=== PATIENT | female | born 1950 | race Caucasian/White ===

== ENCOUNTER 2016-09-18 12:15 | Inpatient (IN) | payer OTHER ==
[~2016-09-18] VITALS: Ht 170.2 cm; Wt 49.9 kg
[2016-09-18 12:20] VITALS: BP 101/75; PULSE 88; RESP 20; TEMP 98.1; O2SAT 100
--- NOTE | 2016-09-18 12:25 | NUR ---
Pt placed to ER waiting room in stable condition. Denies c/o C/P or SOB. Ambulates with steady gait.
--- NOTE | 2016-09-18 12:35 | NUR ---
placed in bed 8 12 lead EKG done by Lety and labs drawn
--- NOTE | 2016-09-18 12:40 | NUR ---
pt. to ER AAOx4 c/o weakness at this time, states that she received a call from her PCP stating that pt.'s Potassium was found to be low, sent her for furthur testing and treatment, pt. states she feels fine as she is resting however does feel mild weakness on walking or as she performs activity, denies chest pain denies SOB
[2016-09-18 12:57] LABS: BASOPHILS # (AUTO) 0.1 K/uL (0.0-0.2); BASOPHILS % (AUTO) 0.7 % (0.0-2.0); EOSINOPHILS # (AUTO) 0.2 K/uL (0.0-0.4); EOSINOPHILS % (AUTO) 2.5 % (0.0-4.0); HEMATOCRIT 42.9 % (36-48); HEMOGLOBIN 14.2 g/dL (12.0-16.0); LYMPHOCYTES # (AUTO) 1.4 K/uL (1.0-5.5); LYMPHOCYTES % (AUTO) 17.3 % (20.5-51.5); MEAN CORPUSCULAR HEMOGLOBIN 30 pg (27-31); MEAN CORPUSCULAR HGB CONC 33 % (32-36); MEAN CORPUSCULAR VOLUME 91 fL (79.0-98.0); MONOCYTES # (AUTO) 0.5 K/uL (0.0-1.0); MONOCYTES % (AUTO) 6.1 % (1.7-9.3); NEUTROPHILS # (AUTO) 6.1 K/uL (1.8-7.7); NEUTROPHILS % (AUTO) 73.4 % (40.0-70.0); PLATELET COUNT (AUTO) 409 K/uL (130-430); RED BLOOD CELL COUNT(AUTO) 4.71 MIL/uL (4.2-6.2); RED CELL DISTRIBUTION WIDTH 13.1 % (9.0-15.0); WHITE BLOOD COUNT (AUTO) 8.3 K/uL (4.8-10.8)
--- NOTE | 2016-09-18 13:00 | NUR ---
Dr. Caballero at bedside examining the pt.
[2016-09-18 13:02] LABS: CALCIUM 9.6 mg/dL (8.4-11.0); CREATININE 1.65 mg/dL (0.55-1.30)
--- NOTE | 2016-09-18 13:10 | NUR ---
# 20 gauge angiocath placed to rac . Use of asceptic technique. Opsite placed over site. Blood return noted. Flushed with 10 cc of normal saline. No evidence of infiltration noted. Patient tolerated well.
[2016-09-18] MEDS ORDERED: POTASSIUM CHLORIDE 20 MEQ TAB.PRT.SR PO ONE ×3 (13:15→23:15)
[2016-09-18 13:16] LABS: ALBUMIN 4.3 g/dL (3.4-4.8); THYROID STIMULATING HORMONE 0.57 uIu/mL (0.34-4.82); TOTAL BILIRUBIN 0.4 mg/dL (0.0-1.0); TOTAL PROTEIN, SERUM 8.3 g/dL (6.4-8.3)
[2016-09-18 13:18] LABS: POTASSIUM 1.8 mmol/L (3.5-5.1)
[2016-09-18] MEDS ORDERED: KCL 20 mEq in D5/0.45NS 1000mL 1,000 ML IV ONE ×2 (13:30→23:00)
--- NOTE | 2016-09-18 13:50 | NUR ---
X Ray at bedside
[2016-09-18] MEDS ORDERED: NEU400 PO (14:00)
[2016-09-18] MEDS ORDERED: CILO50TA PO (14:00)
[2016-09-18] MEDS ORDERED: VENL75CA PO (14:00)
[2016-09-18] MEDS ORDERED: DONE10TA37 PO (14:00)
[2016-09-18] MEDS ORDERED: DONE5TAB26 PO (14:00)
[2016-09-18] MEDS ORDERED: OMEP40CA33 PO (14:00)
[2016-09-18] MEDS: COMMUNICATION ORDER XX ONE (14:00)
--- NOTE | 2016-09-18 14:00 | NUR ---
medication reconciliation completed as stated by pt.
--- NOTE | 2016-09-18 14:00 | NUR ---
Patient will be admitted to care of Dr. Jiang. Admitted to TELE unit. Will go to room 131A. Summary report printed. Report will be given at bedside by Lety.
--- NOTE | 2016-09-18 14:08 | NUR ---
ADMISSION NOTE Received patient from ER via tina, received report from DEBORAH REYNOLDS. Patient admitted with diagnosis of HYPOKALEMIA. Patient oriented to hospital routine, call light, toileting and safety-patient verbalized understanding.
--- NOTE | 2016-09-18 14:10 | NUR ---
Patient will be admitted to care of Monse REYNOLDS. Admitted to MST unit. Will go to room 113A. Belongings list completed. Summary report printed. Report will be given at bedside.
[2016-09-18 14:28] VITALS: BP 108/68; PULSE 71; RESP 18; TEMP 98.2; O2SAT 100
--- NOTE | 2016-09-18 14:40 | NUR ---
PAGED DR SUN LEFT MESSAGE ON VOICE MAIL [phone]
--- NOTE | 2016-09-18 14:58 | NUR ---
Intravenous fluid up now per advance practice nurse. Call from MD per her notification she received regular diet order. One more potassium due.
--- NOTE | 2016-09-18 15:04 | NUR ---
PSYCH CONSULT CONSULT TO DR DESAI'S OFFICE WAS CALLED, HIREN ABARCA, SHE SAID DR CARSON IS ROOFER HELPER RE DEPRESSION
--- NOTE | 2016-09-18 17:44 | NUR ---
ROUNDS TO PATIENT. GIVEN POTASSIUM ORDERED FOR FURTHER REPLETION.
[2016-09-18 18:43] VITALS: BP 98/67; PULSE 77; RESP 16; TEMP 97.7; O2SAT 97
--- NOTE | 2016-09-18 19:30 | NUR ---
Patient rounds and handoff report. Refuses psych consult. Says she only takes aricept at hs 10mg dose.
[2016-09-18 19:32] VITALS: BP 96/56; PULSE 73; RESP 18; TEMP 99.1; O2SAT 96
--- NOTE | 2016-09-18 19:32 | NUR ---
INITIAL NOTE Patient resting on the be. No acute distress. No acute distress. Respiration even and unlabored. Denied of pain at this time. Skin warm and dry to touch. SL intact to RAC, no redness, no swelling, no drainage. On KCl 20Meq in D5 1/2NS at 75ml/hr, infusing well. Discussed the safety issue, use call light when need help, and plan of care, verbally understanding. Safety measure maintained. Call light within reached. Bed in low position, side rails up, bed alarm on. Will continue to monitor.
--- NOTE | 2016-09-18 20:10 | NUR ---
AMBULATED PATIENT TO BATHROOM Ambulated patient to the bathroom, no acute distress. Safety measure maintained. Call light within reached. Continue to monitor.
[2016-09-18] MEDS: HEPARIN SODIUM,PORCINE 5000 UNITS/ML VIAL SUBCUT SCH (21:32)
--- NOTE | 2016-09-18 22:30 | NUR ---
NOTE Patient asked Neurontin 400mg x4 caps and stated that she used to take it at night otherwise will have pain and cannot sleep. Reviewed the home meds with patient and informed patient will have psych consult. Patient refused psych consult and stated "I don't need it." Will informed MD.
--- NOTE | 2016-09-18 22:41 | NUR ---
SHANE COTA Informed Dr. Jiang patient asked Neurontin 400mg cap x 4 caps and in the medication reconciliation home meds shown only 400mg at bedtime. Dr. Jiang ordered [place] 10/325mg 1tab Po PRN Q6hrs. order read back and okay to MD. MD stated "I will come to see the patient and do the med reconciliation." Also informed MD that the patient refused to have psych consult.
--- NOTE | 2016-09-18 22:41 | NUR ---
ADDITIONAL NOTE Also informed Dr. Jiang there is psych consult order but no doctor's name and patient refused psych consult. MD stated will see the patient tomorrow morning and talk to patient. Told MD if patient agree psych consult tomorrow, please enter the doctor's name.
[2016-09-18 22:42] LABS: CALCIUM 8.4 mg/dL (8.4-11.0); CREATININE 1.59 mg/dL (0.55-1.30)
[2016-09-18 22:45] LABS: POTASSIUM 2.1 mmol/L (3.5-5.1)
[2016-09-18] MEDS ORDERED: HYDROcodone/ACETAMIN 10-325 MG TAB PO PRN (22:45)
[2016-09-18] MEDS ORDERED: POTASSIUM CHLORIDE 40 MEQ in NS 250 ML IV ONE (23:15)
--- NOTE | 2016-09-18 23:40 | NUR ---
NORCO GIVEN Patient c/o both legs pain 6/10, [place] 10/325mg given as ordered. No acute distress. Ambulated patient to bathroom. Safety measure maintained. Call light within reached. Will continue to monitor.
[2016-09-18] MEDS ORDERED: KCL 40 mEq in 100 mL (PREMIX) 100 ML IV ONE (23:48)
[2016-09-19] VITALS (7 sets, daily range): BP systolic 91–135; BP diastolic 53–76; PULSE 67–99; RESP 16–22; TEMP 96–98.8; O2SAT 9–100
--- NOTE | 2016-09-19 01:20 | NUR ---
ROUND Patient sleeping at this time. No acute distress. Safety measure maintained. Call light within reached. Bed alarm on, side rails up, bed in low position. Will continue to monitor.
--- NOTE | 2016-09-19 03:15 | NUR ---
ROUND Patient sleeping at this time. No acute distress. Safety measure maintained. Call light within reached. Bed alarm on, side rails up, bed in low position. Continue to monitor.
--- NOTE | 2016-09-19 05:15 | NUR ---
AMBULATED PATIENT TO BATHROOM Ambulated patient to the bathroom, no acute distress. Safety measure maintained. Call light within reached. Continue to monitor.
--- NOTE | 2016-09-19 06:44 | NUR ---
CLOSING NOTE Patient resting on the bed. No acute distress. Respiration even and unlabored. Denied of pain at this time. Skin warm and dry to touch. IV intact to RAC, no redness, no swelling, no drainage. On KCl 20Meq in D5 1/2NS at 75ml/hr, infusing well. All needs met. Hourly rounding during shift. Safety measure maintained. Call light within reached. Bed in low position, side rails up, bed alarm on. Will endorse to morning shift nurse
[2016-09-19 06:55] LABS: CALCIUM 8.6 mg/dL (8.4-11.0); CREATININE 1.32 mg/dL (0.55-1.30)
[2016-09-19 07:05] LABS: POTASSIUM 2.8 mmol/L (3.5-5.1)
[2016-09-19 07:06] LABS: BASOPHILS % (AUTO) 0.8 % (0.0-2.0); EOSINOPHILS # (AUTO) 0.2 K/uL (0.0-0.4); EOSINOPHILS % (AUTO) 2.9 % (0.0-4.0); HEMATOCRIT 35.6 % (36-48); HEMOGLOBIN 12.2 g/dL (12.0-16.0); LYMPHOCYTES # (AUTO) 1.9 K/uL (1.0-5.5); LYMPHOCYTES % (AUTO) 31.7 % (20.5-51.5); MEAN CORPUSCULAR HEMOGLOBIN 32 pg (27-31); MEAN CORPUSCULAR HGB CONC 34 % (32-36); MEAN CORPUSCULAR VOLUME 92 fL (79.0-98.0); MONOCYTES # (AUTO) 0.3 K/uL (0.0-1.0); MONOCYTES % (AUTO) 5.7 % (1.7-9.3); NEUTROPHILS # (AUTO) 3.7 K/uL (1.8-7.7); NEUTROPHILS % (AUTO) 58.9 % (40.0-70.0); PLATELET COUNT (AUTO) 286 K/uL (130-430); RED BLOOD CELL COUNT(AUTO) 3.86 MIL/uL (4.2-6.2); WHITE BLOOD COUNT (AUTO) 6.1 K/uL (4.8-10.8)
--- NOTE | 2016-09-19 07:12 | NUR ---
CALLED SHANE COTA Reported to Dr. Jiang for critical lab result, potassium=2.8. The morning dose of KCl 40mEq not given yet. stated "Just give the morning dose KCl." No more new order at this time.
[2016-09-19] MEDS ORDERED: POTASSIUM CHLORIDE 20 MEQ TAB.PRT.SR PO ONE ×3 (09:00→17:00)
[2016-09-19] MEDS: HEPARIN SODIUM,PORCINE 5000 UNITS/ML VIAL SUBCUT SCH ×2 (09:24→21:53)
--- NOTE | 2016-09-19 09:40 | NUR ---
Handoff rounds and med pass complete. Given 40meq of K as requested for noc nurse.
[2016-09-19] MEDS ORDERED: HYDROcodone/ACETAMIN 10-325 MG TAB PO PRN (11:00)
[2016-09-19] MEDS ORDERED: KCL 20 mEq in NS 1000 mL 1,000 ML IV SCH (11:00)
[2016-09-19] MEDS ORDERED: MORPHINE 2 MG/ML INJ. SYRINGE IVP PRN (11:00)
[2016-09-19] MEDS ORDERED: ACETAMINOPHEN 325 MG TABLET PO PRN (11:00)
--- NOTE | 2016-09-19 11:15 | NUR ---
Patient request for more 7up and ice. Call to dietary. Needs met during follow up round.
[2016-09-19 12:55] LABS: CALCIUM 8.2 mg/dL (8.4-11.0); CREATININE 1.13 mg/dL (0.55-1.30)
[2016-09-19 12:58] LABS: POTASSIUM 2.9 mmol/L (3.5-5.1)
--- NOTE | 2016-09-19 14:11 | NUR ---
NEPHROLOGY CONSULT Spoke with Chloé regarding request for consultation with Dr. Cole ([phone]) for reason: hypokalemia. Dr. Swain is currently polymerization oven tender.
--- NOTE | 2016-09-19 15:47 | NUR ---
ROUNDS TO CHECK IF PATIENT IS ABLE TO PROVIDE SAMPLE OF URINE. PATIENT UNABLE AT THIS TIME. VERIFIED IV FLUID RUNNING.
[2016-09-19 15:59] LABS: CALCIUM 7.9 mg/dL (8.4-11.0); CREATININE 1.13 mg/dL (0.55-1.30); POTASSIUM 3.5 mmol/L (3.5-5.1)
--- NOTE | 2016-09-19 19:20 | NUR ---
INITIAL NOTE Patient resting on the bed. No acute distress. Respiration even and unlabored. Denied of pain at this time. AAO x 4. Skin warm and dry to touch. IV intact to RAC, no redness, no swelling. Discussed the safety issue, use call light when need help, and plan of care, verbally understanding. Safety measure maintained. Call light within reached. Bed in low position, side rails up. Refused bed alarm and stated "Bed alarm to make me nervous". Will continue to monitor.
--- NOTE | 2016-09-19 19:29 | NUR ---
HANDOFF REPORT WITH IMPROVED POTASSIUM AND SALINE LOCK AT THIS TIME TOLERATING PO WELL. NEEDS MET AT THIS TIME. PENDING URINE SODIUM AND CREATININE.
[2016-09-19] MEDS ORDERED: Effexor XR 37.5 MG PO SCH (21:00)
--- NOTE | 2016-09-19 21:00 | NUR ---
ROUND Patient resting on the bed and watching TV. No acute distress. Safety measure maintained. Call light within reached. Will continue to monitor.
[2016-09-19] MEDS: CILOSTAZOL 50 MG TABLET (PLETAL) PO SCH (21:50)
[2016-09-19] MEDS: DOCUSATE SODIUM 100 MG CAPSULE PO SCH (21:50)
[2016-09-19] MEDS: GABAPENTIN 400 MG CAPSULE PO SCH (21:50)
--- NOTE | 2016-09-19 21:55 | NUR ---
EFFEXOR ER NOT AVAILABLE Effexor ER not available house fellow informed. Effexor 37.5mg table is available, ordered 150mg. However, per patient she used to take extend release 150mg a capsule not the tablet. However, Effexor ER in the Pyxis is 75mg/capsule. Will informed .
[2016-09-19] MEDS ORDERED: Effexor 37.5 MG TAB ONE (22:20)
--- NOTE | 2016-09-19 22:30 | NUR ---
CALLED SHANE WAGNER Informed Dr. Zapata regarding the order of Effexor ER, the available is 75mg/cap instead of 37.5mg/cap, MD with [id number]/cap, give two [id number] PO BID. Also verify the rate of IVF with MD, reported to MD patient the last potassium=3.5 and the soiodg=234, the IVF order is KCl 20mEq in NS at 90ml/hr, MD with order decrease to 40ml/hr. Order read back and okay to .
[2016-09-19] MEDS ORDERED: Effexor XR 37.5 MG PO ONE (23:15)
[2016-09-19] MEDS: KCL 20 mEq in NS 1000 mL 1,000 ML IV SCH (23:18)
--- NOTE | 2016-09-20 00:20 | NUR ---
ROUND Patient resting on the bed with eyes closed. No acute distress. Safety measure maintained. Bed in low position, side rails up. Call light within reached. Continue to monitor.
[2016-09-20 01:21] VITALS: BP 93/58; PULSE 77; RESP 20; TEMP 97.8; O2SAT 96
[2016-09-20 01:34] LABS: POTASSIUM,URINE RANDOM 14 mmol/L (12-75); URINE SODIUM, RANDOM 12 mmol/L (40-220)
[2016-09-20 01:53] LABS: BILIRUBIN,URINE NEGATIVE (NEGATIVE); BLOOD, URINE NEGATIVE (NEGATIVE); CLARITY/URINE CLEAR (CLEAR); COLOR,URINE YELLOW (YELLOW); GLUCOSE,URINE NEGATIVE (NEGATIVE); KETONES,URINE NEGATIVE (NEGATIVE); LEUKOCYTE ESTERASE ,URINE NEGATIVE (NEGATIVE); NITRITE, URINE NEGATIVE (NEGATIVE); PROTEIN URINE TRACE (NEGATIVE); UROBILINOGEN,URINE 0.2 (0.2-1.0)
[2016-09-20 02:10] LABS: BACTERIA,URINE FEW /HPF (None Seen); HYALINE CASTS, URINE 0-10 /LPF (None Seen); MUCUS,URINE None Seen /LPF (None Seen); RBC,URINE NONE SEEN /HPF (0-3); WBC,URINE 0-3 /HPF (0-3)
--- NOTE | 2016-09-20 04:14 | NUR ---
ROUND Patient sleeping comfortable. No acute distress. Respiration even and unlabored. Safety measure maintained. Bed in low position, side rails up. Call light within reached. Continue to monitor.
[2016-09-20 04:49] VITALS: BP 92/63; PULSE 66; RESP 17; TEMP 96.8; O2SAT 98
--- NOTE | 2016-09-20 05:25 | NUR ---
ROUND Patient resting on the bed with eyes closed. No acute distress. Respiration even and unlabored. Safety measure maintained. Bed in low position, side rails up. Call light within reached. Continue to monitor.
--- NOTE | 2016-09-20 06:51 | NUR ---
CLOSING NOTE Patient resting on the bed with eyes closed. No acute distress. Respiration even and unlabored. Skin warm and dry to touch. IV intact to RAC, no redness, no swelling, no drainage. Continue on KCl 20Meq in NS at 40ml/hr, infusing well. All needs met. Hourly rounding during shift. Safety measure maintained. Call light within reached. Bed in low position, side rails up, bed alarm on. Will endorse to morning shift nurse
[2016-09-20 07:28] LABS: BASOPHILS % (AUTO) 0.9 % (0.0-2.0); EOSINOPHILS # (AUTO) 0.2 K/uL (0.0-0.4); EOSINOPHILS % (AUTO) 3.7 % (0.0-4.0); HEMOGLOBIN 10.5 g/dL (12.0-16.0); LYMPHOCYTES # (AUTO) 1.5 K/uL (1.0-5.5); LYMPHOCYTES % (AUTO) 34.4 % (20.5-51.5); MEAN CORPUSCULAR HEMOGLOBIN 31 pg (27-31); MEAN CORPUSCULAR HGB CONC 33 % (32-36); MEAN CORPUSCULAR VOLUME 94 fL (79.0-98.0); MONOCYTES # (AUTO) 0.3 K/uL (0.0-1.0); MONOCYTES % (AUTO) 7.8 % (1.7-9.3); NEUTROPHILS # (AUTO) 2.4 K/uL (1.8-7.7); NEUTROPHILS % (AUTO) 53.2 % (40.0-70.0); PLATELET COUNT (AUTO) 215 K/uL (130-430); RED BLOOD CELL COUNT(AUTO) 3.39 MIL/uL (4.2-6.2); RED CELL DISTRIBUTION WIDTH 13.6 % (9.0-15.0); WHITE BLOOD COUNT (AUTO) 4.4 K/uL (4.8-10.8)
[2016-09-20 07:29] LABS: CALCIUM 8.1 mg/dL (8.4-11.0); POTASSIUM 3.8 mmol/L (3.5-5.1)
[2016-09-20 08:09] VITALS: BP 108/66; PULSE 82; RESP 16; TEMP 97.4; O2SAT 100
[2016-09-20] MEDS ORDERED: VENLAFAXINE HCL 75 MG TABLET PO SCH (09:00)
[2016-09-20] MEDS ORDERED: Effexor XR 37.5 MG PO SCH (09:00)
[2016-09-20] MEDS ORDERED: OMEPRAZOLE 20 MG CAPSULE.DR (PriLOSEC) PO SCH (09:00)
[2016-09-20] MEDS: FAMOTIDINE 20 MG TABLET PO SCH (09:38)
[2016-09-20] MEDS: HEPARIN SODIUM,PORCINE 5000 UNITS/ML VIAL SUBCUT SCH ×2 (09:38→21:45)
[2016-09-20] MEDS: MULTIVITAMINS TAB 1 TABLET PO SCH (09:38)
[2016-09-20] MEDS: DOCUSATE SODIUM 100 MG CAPSULE PO SCH ×2 (09:38→21:42)
[2016-09-20] MEDS: CILOSTAZOL 50 MG TABLET (PLETAL) PO SCH ×2 (09:55→21:42)
[2016-09-20] MEDS ORDERED: COMMUNICATION ORDER XX ONE (10:00)
--- NOTE | 2016-09-20 10:08 | NUR ---
PATIENT ROUNDS TO LABEL TUBING, PASS PLETAL, AND OBTAIN MEDICAL RECORD RELEASE CONSENT FOR [facility].
--- NOTE | 2016-09-20 10:57 | NUR ---
Verified fax hotel receptionist to [facility]. Awaiting image results.
[2016-09-20 11:45] VITALS: BP 93/50; PULSE 73; RESP 18; TEMP 98.3; O2SAT 97
--- NOTE | 2016-09-20 13:06 | NUR ---
Call to [facility] for follow up on bilateral carotid imaging. Refax of release of information.
--- NOTE | 2016-09-20 14:38 | NUR ---
Received and placed in chart for MD review a bilateral carotid ultrasound study from [facility], [facility] 09/09/16.
[2016-09-20 16:17] VITALS: Ht 170.2 cm; Wt 49.9 kg
[2016-09-20] MEDS ORDERED: POTASSIUM CHLORIDE 20 MEQ/PKT PACKET PO ONE (16:30)
[2016-09-20 16:45] VITALS: BP 118/68; PULSE 97; RESP 18; TEMP 98; O2SAT 100
--- NOTE | 2016-09-20 18:23 | NUR ---
Rounds to patient. Asking to discharge home. Says she feels better. 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 Remembers how bad the potassium powder mixed with liquid tastes. Used applejuice to mix with potassium.
--- NOTE | 2016-09-20 19:21 | NUR ---
OPENING NOTE Pt. and bedside report received from day shift nurse. Pt. is AAO x 4 and resting comfortably in bed. Plan of care discussed. Safety precautions discussed with pt. Educated pt. regarding bed alarm and safety protocol but pt. is refusing at this time and stated "I just don't want it on and I know I will call if I need to or don't feel well, it makes me more nervous having it on than anything and they didn't have it on last night and all day either." Educated pt. on how to use call light for needs. Will continue to monitor.
--- NOTE | 2016-09-20 19:47 | NUR ---
Handoff report with noc nurse at patient bedside. Mentioned clarified orders for dose of medication, effexor, an issue she says was fixed last night.
[2016-09-20 20:00] VITALS: BP 114/59; PULSE 87; RESP 17; TEMP 97.3; O2SAT 100
[2016-09-20] MEDS: KCL 20 mEq in NS 1000 mL 1,000 ML IV SCH (21:42)
--- NOTE | 2016-09-20 21:42 | NUR ---
DUE MEDS Late entry due to pt. care. Due meds administered as ordered. Pt. tolerated well. Educated pt. regarding medication and s/e. Pt. verbalized understanding with no concerns or c/o discomfort at this time. Call light to left hand. Pt. refusing bed alarm. Safety precautions in place. Encouraged pt. to use call light for needs. Will continue to monitor.
[2016-09-20] MEDS: GABAPENTIN 400 MG CAPSULE PO SCH (21:43)
--- NOTE | 2016-09-21 | NUR ---
RESTING Pt. resting quietly in bed. Respirations are even and unlabored with visible chest rise and fall. No s/s of acute distress. Safety precautions in place. Will continue to encourage regarding bed alarm. Will continue to monitor.
--- NOTE | 2016-09-21 02:30 | NUR ---
RESTING Late entry due to pt. care. Pt. is resting quietly in bed with no s/s of acute distress. Safety precautions in place. Will continue to monitor.
[2016-09-21 04:00] VITALS: BP 97/68; PULSE 68; RESP 12; TEMP 97.5; O2SAT 100
--- NOTE | 2016-09-21 05:27 | NUR ---
ROUNDS Pt. resting quietly in bed with no s/s of acute distress. Safety precautions in place. Pt. continuing to refuse bed alarm for safety but is educated and frequently encouraged. Call light to left hand. Will continue to monitor.
--- NOTE | 2016-09-21 06:55 | NUR ---
CLOSING NOTES All needs met. No significant changes. Safety precautions in place. Will endorse care to oncoming day shift nurse.
[2016-09-21 07:42] LABS: CALCIUM 8.1 mg/dL (8.4-11.0); CREATININE 0.9 mg/dL (0.55-1.30); POTASSIUM 4.7 mmol/L (3.5-5.1)
[2016-09-21 08:08] VITALS: BP 99/60; PULSE 71; RESP 16; TEMP 98; O2SAT 99
--- NOTE | 2016-09-21 08:13 | NUR ---
Rounds to patient, provided shower cap, comb and towel. Patient given extra cup of coffee. Vital signs stable.
[2016-09-21] MEDS: HEPARIN SODIUM,PORCINE 5000 UNITS/ML VIAL SUBCUT SCH (09:04)
[2016-09-21] MEDS: MULTIVITAMINS TAB 1 TABLET PO SCH (09:05)
[2016-09-21] MEDS: FAMOTIDINE 20 MG TABLET PO SCH (09:05)
[2016-09-21] MEDS: DOCUSATE SODIUM 100 MG CAPSULE PO SCH (09:05)
[2016-09-21 11:00] VITALS: BP 117/76; PULSE 78; RESP 18; TEMP 98.1; O2SAT 97
[2016-09-21 11:56] VITALS: BP 117/71; PULSE 78; RESP 18; TEMP 98.1; O2SAT 97
--- NOTE | 2016-09-21 12:55 | NUR ---
D/C Patient Patient given medication reconciliation form and D/C instructions. Exit Care provided. Patient verbalized understanding. MD discussed with patient the results and treatment provided. Ambulatory with steady gait for discharge to home. Patient in stable condition, ID band removed. IV catheter removed, intact and dressing applied, no active bleeding. Rx reconciliation given. Patient educated on pain management. All belongings sent with patient.
--- NOTE | 2016-09-23 11:50 | NUR ---
Discharge Follow Up Phone Call Associate Curator phoned patient, , and left a voicemail message on 09/22/16. SPEECH CORRECTION CONSULTANT phoned patient today. Patient stated she was doing well. She had no questions or concerns. She has not made her follow up appointment with Dr De La Cruz, but will call today. SPEECH CORRECTION CONSULTANT offered to make the appointment, but patient prefers to make her own appointment. She is aware that she needs lab work done within the week. No further calls needed.
== END 2016-09-21 12:55 | disposition home or self-care (01) | DRG 73 ==
LOC: SED 12:15 → STU 13:43 → SMU 14:22 → STU 14:26 → SMU 09-20 23:27
PROVIDERS: ADMIT Family Medicine; ATTEND Family Medicine
DX: G90.9 Disorder of the autonomic nervous system, unspecified (principal); N17.0 Acute kidney failure with tubular necrosis; E87.6 Hypokalemia; F32.9 Major depressive disorder, single episode, unspecified; K21.9 Gastro-esophageal reflux disease without esophagitis; I10 Essential (primary) hypertension; G62.9 Polyneuropathy, unspecified
CPT/HCPCS: 36415; 71010; 80048; 80053; 81000-TC; 83735-TC; 83880; 83930-TC; 83935-TC; 84302-TC; 84443-TC; 84999-TC; 85025; 93005; 99285; J1644; J3480; J7030; J7050

== ENCOUNTER 2017-03-01 08:19 | Outpatient (CLI) | payer OTHER ==
[~2017-03-01] VITALS: Ht 152.4 cm; Wt 47.2 kg
[~2017-03-01 08:19] MED LIST: CILO50TA PO; DONE10TA37 PO; NEU400 PO; VENL75CA PO
[2017-03-01] MEDS ORDERED: CALCITRIOL 0.25 MCG CAPSULE PO ONE (09:00)
== END 2017-03-01 17:14 | disposition home or self-care (01) ==
LOC: SMU 08:19 → SUS 08:19
PROVIDERS: ATTEND Internal Medicine
DX: N18.3 Chronic kidney disease, stage 3 (moderate) (principal); I73.9 Peripheral vascular disease, unspecified; E78.5 Hyperlipidemia, unspecified
CPT/HCPCS: 76770; 78709; A9562

== ENCOUNTER 2019-02-17 12:26 | Inpatient (IN) | payer OTHER, MEDICARE ==
[~2019-02-17] VITALS: Ht 170.2 cm; Wt 49.0 kg
[2019-02-17 12:26] VITALS: BP_SYST 112
--- NOTE | 2019-02-17 12:26 | NUR ---
Patient to ER bed 2 to gown for evaluation. Side rails up. Report given to GAIL Zhang.
--- NOTE | 2019-02-17 12:40 | NUR ---
ER Dr. Aly at bedside examining patient.
[2019-02-17] MEDS ORDERED: NACL 0.9% 1,000 ML IV ONE (12:46)
[2019-02-17] MEDS ORDERED: ONDANSETRON HCL 4 MG/2 ML VIAL IVP ONE (13:00)
[2019-02-17] MEDS ORDERED: MORPHINE 2 MG/ML INJ. SYRINGE IVP ONE (13:00)
[2019-02-17 13:22] LABS: BASOPHILS % (AUTO) 0.3 % (0.0-2.0); EOSINOPHILS % (AUTO) 0.2 % (0.0-4.0); HEMATOCRIT 38.7 % (36-48); LYMPHOCYTES # (AUTO) 0.9 K/uL (1.0-5.5); LYMPHOCYTES % (AUTO) 9.3 % (20.5-51.5); MEAN CORPUSCULAR HEMOGLOBIN 33 pg (27-31); MEAN CORPUSCULAR HGB CONC 34 % (32-36); MEAN CORPUSCULAR VOLUME 99 fL (79.0-98.0); MONOCYTES # (AUTO) 0.4 K/uL (0.0-1.0); MONOCYTES % (AUTO) 4.8 % (1.7-9.3); NEUTROPHILS # (AUTO) 7.9 K/uL (1.8-7.7); NEUTROPHILS % (AUTO) 85.4 % (40.0-70.0); PLATELET COUNT (AUTO) 272 K/uL (130-430); RED BLOOD CELL COUNT(AUTO) 3.91 MIL/uL (4.2-6.2); RED CELL DISTRIBUTION WIDTH 13.1 % (9.0-15.0); WHITE BLOOD COUNT (AUTO) 9.2 K/uL (4.8-10.8)
[2019-02-17 13:36] LABS: CALCIUM 8.6 mg/dL (8.4-11.0); CREATININE 1.85 mg/dL (0.55-1.30)
--- NOTE | 2019-02-17 13:40 | NUR ---
Note donell in EDM - 02/17/19 at 1343 by LACY received report from GAIL Arreola. patient in bed, O2Sat at 84-85%. Patient denies SOB and states is breathing fine and does not want oxygen. Patient states needed to lay on side and is fine. Patient states smells "pot" but does not use it. Patient agitated. Will continue to monitor.
--- NOTE | 2019-02-17 13:40 | NUR ---
Patient brought in by son for c/o right upper back pain that radiate to abdomen, 9/10 pain. Patient denies nausea, vomiting and diarrhea. Patient AAOX4. Patient had cataract surgery right eye x3 days ago and left cataract surgery 3 years ago. No s/s of acute distress noted. Will continue to monitor.
[2019-02-17 13:41] LABS: ALBUMIN 3.3 g/dL (3.4-4.8); TOTAL BILIRUBIN 0.4 mg/dL (0.0-1.0)
--- NOTE | 2019-02-17 15:32 | NUR ---
Patient transported to radiology via gurney, accompanied by echocardiography radiology technologist.
--- NOTE | 2019-02-17 16:00 | NUR ---
patient in bed, resting. no s/s of acute distress noted. son at bedside. will continue to monitor.
--- NOTE | 2019-02-17 16:30 | NUR ---
Patient in bed resting. no s/s of acute distress noted. will continue to monitor.
--- NOTE | 2019-02-17 18:20 | NUR ---
Patient will be admitted to care of Dr. Quintana. Admitted to medsurg unit. GAIL Sarmiento to assign room. Belongings list completed. Summary report printed. Report will be given at bedside.
[2019-02-17] MEDS ORDERED: CILO100T PO (18:49)
[2019-02-17] MEDS ORDERED: SPIR25TA6 PO (18:49)
--- NOTE | 2019-02-17 18:51 | NUR ---
Medication reconciliation completed with information provided by patient. Any prior medication reconciliation on file was reviewed and corrected.
--- NOTE | 2019-02-17 18:55 | NUR ---
Patient will be admitted to care of Dr. Bass. Admitted to med/surg unit. Will go to room 117B. Belongings list completed. Summary report printed. Report will be given at bedside.
--- NOTE | 2019-02-17 19:00 | NUR ---
Report called and given to Kimberlee Sarmiento RN. All questions answered.
--- NOTE | 2019-02-17 19:04 | NUR ---
ADMIT NOTE Received pt from ER to the floor with a diagnosis of INTRACTABLE ABDOMINAL PAIN AND POSSIBLE CHOLECYSTITIS. Admission process initiated. patient oriented to pain management, safety and call light-teach back done.
[2019-02-17] MEDS ORDERED: ONDANSETRON HCL 4 MG/2 ML VIAL IVP PRN (19:30)
[2019-02-17] MEDS ORDERED: HYDROcodone/ACETAMIN 5-325 MG TAB (NORCO/ VICODIN) PO PRN (19:30)
[2019-02-17] MEDS ORDERED: MORPHINE 2 MG/ML INJ. SYRINGE IVP PRN (19:30)
[2019-02-17] MEDS ORDERED: ACETAMINOPHEN 325 MG TABLET PO PRN (19:30)
--- NOTE | 2019-02-17 19:30 | NUR ---
OPENING NOTES Receive patient from admitting nurse. Patient is alert oriented x4. No signs of respiratory distress. Patient verbalized comfortable at this time. SL in the Left AC. Patency noted. Patient oriented to room and staffing. Call light with in reach. Bed in locked and lowest position. Patient educated on the use of call light. Patient verbalized understanding. Bed alarm on. Safety precaution in place.
[2019-02-17 20:00] VITALS: BP_SYST 118; BP_SYST 126; BP_SYST 149
[2019-02-17] MEDS ORDERED: cefTRIAXone 1 GM IVPB PREMIX 50 ML IV SCH (20:00)
--- NOTE | 2019-02-17 20:18 | NUR ---
SPOKE WITH DR. ANITA LUBIN stated it is ok to give PO Meds to patient. made aware that patient complaints about Morphine, it gives patient heartburn. ordered [place] 10/325 PO Q6H PRN, also to put consult for surgeon. Will carry out orders.
[2019-02-17 20:20] LABS: INR 1.1 (0.8-1.2); PROTHROMBIN TIME 10.7 SECS (9.5-12.5)
[2019-02-17 20:34] LABS: PHOSPHORUS 2.9 mg/dL (2.7-4.5)
[2019-02-17] MEDS ORDERED: cefTRIAXone 1 GM IVPB PREMIX 50 ML IV ONE ×2 (20:38→20:42)
[2019-02-17] MEDS: NACL 0.9% 1,000 ML IV SCH (20:40)
[2019-02-17] MEDS: HYDROcodone/ACETAMIN 10-325 MG TAB PO PRN (20:42)
--- NOTE | 2019-02-17 20:42 | NUR ---
PAIN Patient complaints of 8/10 abdominal pain. PRN medication Pain medication administered. Will continue to monitor and re assess.
[2019-02-17] MEDS: DOCUSATE SODIUM 100 MG CAPSULE PO SCH (20:44)
[2019-02-17] MEDS: SPIRONOLACTONE 25 MG TABLET (ALDACTONE) PO SCH (20:44)
[2019-02-17] MEDS: GABAPENTIN 400 MG CAPSULE PO SCH (20:44)
[2019-02-17] MEDS: VENLAFAXINE HCL 50 MG TABLET PO SCH (20:57)
--- NOTE | 2019-02-17 22:40 | NUR ---
RN ROUNDS Patient is asleep. No signs of discomfort noted at this time. No signs of acute respiratory distress, breathing even and unlabored. Safety precautions in place. Will continue to monitor.
--- NOTE | 2019-02-18 00:10 | NUR ---
VITALS/ASSIST TO BATHROOM/REQUEST NOT TO BE DISTURBED Vitals signs taken and recorded. Patient assisted to bathroom and back to bed by RN. Patient has steady gait, patient tolerated well. Patient verbalized not to be disturbed and would like to get some sleep. Patient made aware of Lab draw at 0500. Patient verbalized understanding. All needs met. Safety precaution in place. Will continue to monitor.
[2019-02-18 00:25] VITALS: BP_SYST 99
[2019-02-18 01:08] LABS: BILIRUBIN,URINE NEGATIVE (NEGATIVE); BLOOD, URINE 1+ (NEGATIVE); CLARITY/URINE CLEAR (CLEAR); COLOR,URINE YELLOW (YELLOW); GLUCOSE,URINE NEGATIVE (NEGATIVE); KETONES,URINE NEGATIVE (NEGATIVE); LEUKOCYTE ESTERASE ,URINE NEGATIVE (NEGATIVE); NITRITE, URINE NEGATIVE (NEGATIVE); PH,URINE 5.5 (5.0-8.0); PROTEIN URINE NEGATIVE (NEGATIVE); UROBILINOGEN,URINE 0.2 (0.2-1.0)
[2019-02-18 01:13] LABS: BACTERIA,URINE FEW /HPF (None Seen); WBC,URINE 0-3 /HPF (0-3)
[2019-02-18 01:30] LABS: THYROID STIMULATING HORMONE 0.58 uIu/mL (0.36-3.74)
[2019-02-18] MEDS: HYDROcodone/ACETAMIN 10-325 MG TAB PO PRN ×4 (04:36→21:16)
--- NOTE | 2019-02-18 04:36 | NUR ---
PAIN Patient verbalized 9/10 abdominal pain. PRN pain medication per MD order. Will continue to monitor.
--- NOTE | 2019-02-18 05:51 | NUR ---
CONSULTATION PAGED REASON FOR CONSULTATION: POSSIBLE CHOLECYSTITIS WAS CONSULT CALLED? YES PERSON WHO WAS NOTIFIED: MOLLY CONSULTING PHYSICIAN: DR. ELLISON LIQUEFACTION PLANT OPERATOR SPECIALTY: GENERAL VICE PRESIDENT [employer] PHONE NUMBER: [phone] ORDERING PHYSICIAN: DR. HOWARD
--- NOTE | 2019-02-18 06:37 | NUR ---
CLOSING NOTES Patient is asleep. NO signs of respiratory distress. No signs of discomfort at this time. IVF infusing well, IV site patent, no signs of infiltration or infection noted. All needs met throughout the shift. Fall and safety precaution in place. Will continue to monitor until patient care is endorse to oncoming day shift nurse.
[2019-02-18 08:00] VITALS: BP_SYST 109
--- NOTE | 2019-02-18 08:00 | NUR ---
RN OPENING NOTE patient is resting in bed. alert oriented x4, patient denies pain or discomfort. patient was assessed, vital signs are stable. patient is NPO except for meds. IVF is running as prescribed, will continue to monitor and will pass the med , bed at low position and call light within reach
[2019-02-18 08:13] LABS: BASOPHILS % (AUTO) 0.2 % (0.0-2.0); EOSINOPHILS % (AUTO) 0.2 % (0.0-4.0); HEMATOCRIT 34.2 % (36-48); HEMOGLOBIN 11.6 g/dL (12.0-16.0); LYMPHOCYTES # (AUTO) 0.7 K/uL (1.0-5.5); MEAN CORPUSCULAR HEMOGLOBIN 34 pg (27-31); MEAN CORPUSCULAR HGB CONC 34 % (32-36); MEAN CORPUSCULAR VOLUME 100 fL (79.0-98.0); MONOCYTES # (AUTO) 0.6 K/uL (0.0-1.0); MONOCYTES % (AUTO) 7.7 % (1.7-9.3); NEUTROPHILS % (AUTO) 83.9 % (40.0-70.0); PLATELET COUNT (AUTO) 219 K/uL (130-430); RED BLOOD CELL COUNT(AUTO) 3.42 MIL/uL (4.2-6.2); RED CELL DISTRIBUTION WIDTH 12.8 % (9.0-15.0); WHITE BLOOD COUNT (AUTO) 8.4 K/uL (4.8-10.8)
[2019-02-18 08:27] LABS: CREATININE 1.94 mg/dL (0.55-1.30); POTASSIUM 4.8 mmol/L (3.5-5.1)
[2019-02-18] MEDS: SPIRONOLACTONE 25 MG TABLET (ALDACTONE) PO SCH ×2 (08:44→20:56)
[2019-02-18] MEDS: DOCUSATE SODIUM 100 MG CAPSULE PO SCH ×2 (08:44→20:55)
[2019-02-18] MEDS: cefTRIAXone 1 GM IVPB PREMIX 50 ML IV SCH (08:45)
[2019-02-18] MEDS: NACL 0.9% 1,000 ML IV SCH ×2 (08:46→21:18)
[2019-02-18] MEDS: VENLAFAXINE HCL 50 MG TABLET PO SCH ×2 (09:00→21:00)
--- NOTE | 2019-02-18 09:02 | NUR ---
CONSULTATION PAGED REASON FOR CONSULTATION:DILATED CBD WAS CONSULT CALLED?Y PERSON WHO WAS NOTIFIED:KUSHAL CONSULTING PHYSICIAN:BRADLEY LOPEZ EXPERIMENTAL PLASTICS FABRICATOR SPECIALTY:GI EXPERIMENTAL PLASTICS FABRICATOR PHONE NUMBER:[phone] ORDERING PHYSICIAN:
[2019-02-18 09:17] LABS: CALCIUM 7.7 mg/dL (8.4-11.0)
--- NOTE | 2019-02-18 10:00 | NUR ---
RN NOTE PATIENT WAS GIVEN HER MEDICATION, EDUCATED ABOUT THE SIDE EFFECTS OF SOME OF THEM, SOME HOME MED IS NOT YET HERE WELL EFFEXOR, PHARMACY WAS CALLED. PATIENT WAS INFORMED TO BRING HER CLISTAZOLE FROM HOME AND EFFEXOR IS NOT AVAILABLE IN THE HOSPITAL. PHARMACY WAS INFORMED. WILL CONTINUE TO MONITOR.
--- NOTE | 2019-02-18 12:00 | NUR ---
RN NOTE PATIENT IS RESTING IN BED, PATIENT WAS PUT ON CLEAR LIQUID DIET. PATIENT'S SON BY THE BED SIDE, WAS EDUCATED ABOUT HER DISEASE PROCESS. GI CONSULT WILL BE COMING TOMORROW FOR MRCP, WILL CONTINUE TO MONITOR.
[2019-02-18 12:22] VITALS: BP_SYST 108
--- NOTE | 2019-02-18 14:00 | NUR ---
RN NOTE PATIENT IS RESTING IN BED, NO ISSUE
--- NOTE | 2019-02-18 16:00 | NUR ---
RN NOTE PATIENT WAS ASSISTED TO THE BATHROOM, AND RETURNING BACK TO BED, TOLERATED IT VERY WELL
[2019-02-18 16:14] VITALS: BP_SYST 128
--- NOTE | 2019-02-18 18:00 | NUR ---
RN CLOSING NOTE PATIENT WAS GIVEN HER MEDICATIONS, WELL HER PAIN MED. PATIENT WAS SERVED HER DINNER, WILL ENDORSE TO NEXT SHIFT.
--- NOTE | 2019-02-18 19:30 | NUR ---
OPENING NOTES Receive report from AM nurse. Patient is awake, oriented x4. No signs of respiratory distress. Denies discomfort at this time. IVF infusing well, patency noted. Call light within reach. Bed locked and lowest position. Call light within reach. Encourage the use of call light, patient teach back and demonstrated the use of call light. Patient refused to put the bed alarm. Patient educated the purpose of bed alarm. Patient verbalized understanding but still refused. Will continue to monitor.
[2019-02-18 20:00] VITALS: BP_SYST 149
[2019-02-18] MEDS: GABAPENTIN 400 MG CAPSULE PO SCH (20:56)
[2019-02-18] MEDS: CILOSTAZOL 50 MG PO SCH (21:00)
--- NOTE | 2019-02-18 21:00 | NUR ---
REFUSED SCDS/PAIN Patient complaining of 10/10 lower back pain at this time. Patient informed that [place] 10/325 will available in 15 minutes per PRN order, patient verbalized understanding and is willing to wait. Patient refused SCDs at this time, patient educated on its benefits and purpose, but patient still refused. Will continue to encourage throughout the shift. Breathing even and unlabored. IVF infusing well. Call light with patient. Will continue to monitor.
[2019-02-18 23:46] VITALS: BP_SYST 126
--- NOTE | 2019-02-19 02:00 | NUR ---
RN ROUNDS Patient is asleep, no signs of respiratory distress. Breathing even and unlabored. No signs of discomfort at this time. IVF infusing well. Safety precaution in place. Will continue to monitor.
--- NOTE | 2019-02-19 04:00 | NUR ---
RN ROUNDS Patient is asleep at this time. No signs of respiratory distress. No signs of discomfort noted. IVF infusing well. Safety precaution in place. Will continue to monitor.
[2019-02-19] MEDS: HYDROcodone/ACETAMIN 10-325 MG TAB PO PRN ×2 (06:36→12:36)
--- NOTE | 2019-02-19 06:45 | NUR ---
CLOSING NOTES. Patient is awake, oriented. No signs of respiratory distress. Denies discomfort at this time. IVF infusing well, patency noted. All needs met throughout the shift. Fall and safety precaution maintained throughout the shift. Will continue to monitor until patient care is endorse to oncoming AM nurse.
--- NOTE | 2019-02-19 06:51 | NUR ---
Nutrition Update Rubens Scale 18 noted. Pt admitted for Intractable Abdominal Pain, Possible Cholecystitis Diet: NPO BMI: 16.9 kg/m2 RD to follow per nutrition care standards.
[2019-02-19 07:45] LABS: BASOPHILS % (AUTO) 0.4 % (0.0-2.0); EOSINOPHILS % (AUTO) 0.1 % (0.0-4.0); HEMATOCRIT 35.8 % (36-48); LYMPHOCYTES # (AUTO) 0.6 K/uL (1.0-5.5); LYMPHOCYTES % (AUTO) 5.9 % (20.5-51.5); MEAN CORPUSCULAR HEMOGLOBIN 34 pg (27-31); MEAN CORPUSCULAR HGB CONC 34 % (32-36); MEAN CORPUSCULAR VOLUME 100 fL (79.0-98.0); MONOCYTES # (AUTO) 0.7 K/uL (0.0-1.0); MONOCYTES % (AUTO) 7.2 % (1.7-9.3); NEUTROPHILS # (AUTO) 8.8 K/uL (1.8-7.7); NEUTROPHILS % (AUTO) 86.4 % (40.0-70.0); PLATELET COUNT (AUTO) 224 K/uL (130-430); RED BLOOD CELL COUNT(AUTO) 3.59 MIL/uL (4.2-6.2); WHITE BLOOD COUNT (AUTO) 10.1 K/uL (4.8-10.8)
[2019-02-19 08:02] LABS: ALBUMIN 2.3 g/dL (3.4-4.8); CREATININE 1.88 mg/dL (0.55-1.30); PHOSPHORUS 2.5 mg/dL (2.7-4.5); POTASSIUM 5.1 mmol/L (3.5-5.1); TOTAL BILIRUBIN 0.4 mg/dL (0.0-1.0)
[2019-02-19 08:20] LABS: CALCIUM 8.1 mg/dL (8.4-11.0)
[2019-02-19 08:50] VITALS: BP_SYST 83
[2019-02-19] MEDS: CILOSTAZOL 50 MG PO SCH ×2 (09:00→21:00)
[2019-02-19] MEDS: DOCUSATE SODIUM 100 MG CAPSULE PO SCH ×2 (09:00→22:56)
[2019-02-19] MEDS: VENLAFAXINE HCL 50 MG TABLET PO SCH ×3 (09:00→22:57)
[2019-02-19] MEDS: NACL 0.9% 1,000 ML IV SCH ×2 (09:00→22:57)
--- NOTE | 2019-02-19 09:35 | NUR ---
02/19/2019 0935 This patient is sitting up in bed. She is alert and orientedX4. Vital signs are obtained: bp83/55, HR 80, temp 98.9, resp 20, 96%RA. No s/s of distress. The patient states her bp runs low and that she has just had pain medication. Doctor will be made aware, and the patient will be monitored for hypotension. Labs reviewed: Phos 2.5, albumin 2.3, calcium 8.1, potassium 5.1.
[2019-02-19] MEDS ORDERED: NS 500 ML IV ONE (10:15)
[2019-02-19] MEDS: cefTRIAXone 1 GM IVPB PREMIX 50 ML IV SCH (10:35)
--- NOTE | 2019-02-19 11:14 | NUR ---
02/19/2019 1114 This patient is receiving a NS bolus for low bp. Also, antibiotic and IVF will continue. this patient will remain npo for a MRI/MRCP procedure. The patient has received the MRI Screening form which she will fill out, and then it will be faxed to MRI. They anticipate this patient will receive this procedure after 1300 today. F/u planned.
--- NOTE | 2019-02-19 11:26 | NUR ---
02/19/2019 1126 This will remain npo for an MRCP. She has been given the MRI screening form to complete. She denies pain. No s/s of distress noted.
--- NOTE | 2019-02-19 12:21 | NUR ---
Nutrition Assessment (short note d/t lack of time) PMH: Cholelithiasis, Possible Cholecystitis vs Choledocholithiasis, HTN, Major Depressive disorder, Vasomotor Nephropathy w/ Left Hydronephrosis per MD notes. A- MICHELLE reviewed pt's current EMR including diet Hx, physician notes, nursing notes, pertinent labs/meds/procedures, care trends and care activity. RD Notification received for abd pain, N/V >3 days. Pt seen resting in bed, covered in blankets at time of visit earlier today. Pt verified anthropometrics and verified reason for notification. Pt also reported that she eats small but frequent meals at home, and is a small eater. Last BM was 3 to 4 days ago, but denied any constipation or any diarrhea. Cheese and crackers are mostly what she eats at home. Pt reported her UBW 115-120# 1 yr ago. Per bed huddle, pt currently on NPO as pt is awaiting MRCP. Per EMR, PO intake is Poor 25% average of 2 meals 02/18/19 on clear liquid diet. Pt is underweight for height and age. Muscle and fat wasting are also visibly evident. Pt may benefit from an addition of ONS for additional calories and protein once diet is advanced. Ht: 5'7 Wt: 108#/49 kg BMI: 16.9 kg/m2 (Underweight) %IBW: 80% IBW: 135#/61 kg ESTIMATED NUTRITIONAL REQUIREMENTS CALORIES/DAY: 3232-9557 kcal/day (25-30 kcal/kg IBW for gradual weight gain promotion) PROTEIN/DAY: 61-92 gm/day (1-1.5 gm/kg IBW for weight gain promotion) FLUID/DAY: 1.5 L/day (25ml/kg IBW for Geriatric maintenance) D: Underweight r/t poor nutrition quality of life AEB pt's report of frequent intake of cheese and crackers for meals, BMI 16.9 kg/m2 and 80% IBW. I: 1. Recommend: continuing NPO per MD orders. 2. If/when medically appropriate, advance diet to Low Fat 2gm Na diet w/ Ensure Clear TID. M: Monitor appetite and PO intake w/ goal of pt meeting at least 75% of estimated nutritional needs, labs trending WNL, normal GI function, skin integrity/wt maintenance. E: RD to F/U within 2-3 days [facility] [place], RD
--- NOTE | 2019-02-19 12:33 | NUR ---
Dietitian Recommendation 1. Recommend: continuing NPO per MD orders. 2. If/when medically appropriate, advance diet to Low Fat 2gm Na diet w/ Ensure Clear TID. Please see Nutritional Assessment for details. MICHELLE COTTER
[2019-02-19 12:35] VITALS: BP_SYST 92
[2019-02-19 12:38] VITALS: BP_SYST 105
[2019-02-19 16:43] VITALS: BP_SYST 95
--- NOTE | 2019-02-19 19:45 | NUR ---
Pt is fully awake, alert and oriented x4. No c/o abdominal pain at this time. IV site in LAC is without any signs of infiltration. Fall and safety precautions are in place. Awaiting result of today's MRCP and will notify Dr. Marroquin as soon as the result is available. Pt is NPO and will contact attending MD for diet order.
[2019-02-19 20:00] VITALS: BP_SYST 115
--- NOTE | 2019-02-19 20:03 | NUR ---
Spoke with Dr. Gooden who is covering for Dr. Quintana for diet order. Dr. Gooden said to contact Dr. Marroquin for diet order since Dr. Marroquin ordered MRCP.
--- NOTE | 2019-02-19 20:25 | NUR ---
MRCP result was read to Dr. Marroquin who stated he is not performing surgery on pt because dilation of the CBD is not due to gall stones, but something else. Dr. Marroquin stated case needs to be referred back to GI. Dr. Marroquin said to give pt full liquid diet.
--- NOTE | 2019-02-19 21:34 | NUR ---
PAGED PAGED DR. PADRON; HEAD OF MAINTENANCE-DR. SPAULDING, SPOKE WITH HAYLEE
--- NOTE | 2019-02-19 21:55 | NUR ---
Dr. Marroquin here to see pt.
--- NOTE | 2019-02-19 22:02 | NUR ---
02/19/2019 1300 This patient complained of blood in urine. However, the [employer] has flushed. Patient is advised to inform the nurse if it should happen again. This patient is awaiting machine operator picker for MRCP procedure
--- NOTE | 2019-02-19 22:04 | NUR ---
02/19/2019 1600 This patient has returned from the MRCP. No s/s of distress noted.
[2019-02-19] MEDS: GABAPENTIN 400 MG CAPSULE PO SCH (22:56)
--- NOTE | 2019-02-19 23:17 | NUR ---
Dr. Lazo who is covering for Dr. Childs called back and was informed Dr. Marroquin wanted GI to follow up with pt after MRCP result was read to Dr. Marroquin. Same MRCP result was read to Dr. Lazo and Dr. Lazo ordered NPO after midnight, but no ERCP ordered. Addendum: 02/20/19 at 0159 by Evi Romo RN Pt was informed of nothing by mouth after midnight per Dr. Lazo's order and pt verbalized understanding.
[2019-02-20] VITALS: BP_SYST 101
--- NOTE | 2019-02-20 01:00 | NUR ---
Pt is sleeping with IVF infusing well in [facility]. Fall and safety precautions are in place.
--- NOTE | 2019-02-20 03:00 | NUR ---
Pt is sleeping in bed without any distress noted. IVF is infusing well in LAC. Fall and safety precautions are in place. Call light is with pt and bed is in the lowest and locked positions. Red NPO cone is on pt's bedside table.
--- NOTE | 2019-02-20 05:00 | NUR ---
Pt is sleeping comfortably in bed. IVF is infusing well in [facility]. Fall and safety precautions are in place.
--- NOTE | 2019-02-20 06:30 | NUR ---
Late Entry due to Pt care: Pt is awake and not in any distress. IVF is infusing well in [facility]. Will endorse to day shift nurse.
[2019-02-20 07:32] VITALS: BP_SYST 93
--- NOTE | 2019-02-20 07:35 | NUR ---
OPENING NOTES: RECEIVED PATIENT FROM ASSOCIATE PROFESSOR OF LIBRARY MEDIA NURSE. PATIENT ASLEEP IN BED. NO SIGNS OF DISTRESS OR SHORTNESS OF BREATH NOTED. IV SITE IS PATENT WITH NO SIGNS OF INFILTRATION. PATIENT IS TOLERATING OXYGEN AT ROOM AIR. PATIENT IN STABLE CONDITION. SAFETY, FALL, AND ASPIRATION PRECAUTIONS ARE IN PLACE. BED LOCKED IN LOWEST POSITION WITH CALL LIGHT IN REACH. WILL CONTINUE TO MONITOR PATIENT FOR ANY CHANGES.
[2019-02-20 08:30] VITALS: BP_SYST 113
[2019-02-20] MEDS: CILOSTAZOL 50 MG PO SCH ×2 (09:00→20:32)
[2019-02-20] MEDS: DOCUSATE SODIUM 100 MG CAPSULE PO SCH ×2 (09:26→20:32)
[2019-02-20] MEDS: cefTRIAXone 1 GM IVPB PREMIX 50 ML IV SCH (09:26)
[2019-02-20] MEDS: NACL 0.9% 1,000 ML IV SCH ×2 (09:27→23:47)
[2019-02-20] MEDS: VENLAFAXINE HCL 50 MG TABLET PO SCH ×3 (09:29→20:32)
[2019-02-20] MEDS: HYDROcodone/ACETAMIN 10-325 MG TAB PO PRN (09:29)
--- NOTE | 2019-02-20 10:15 | NUR ---
RN ROUNDS: PATIENT IS AWAKE AND ALERT x4. PATIENT STATES HER PAIN IS GETTING BETTER. NO SIGNS OF DISTRESS OR SHORTNESS OF BREATH NOTED. PATIENT IN STABLE CONDITION. WILL CONTINUE TO MONITOR PATIENT FOR ANY CHANGES.
[2019-02-20 11:32] VITALS: BP_SYST 101
--- NOTE | 2019-02-20 12:05 | NUR ---
RN ROUNDS: PATIENT AWAKE AND ALERT x4. PATIENT IN STABLE CONDITION. WILL CONTINUE TO MONITOR PATIENT FOR ANY CHANGES.
--- NOTE | 2019-02-20 14:05 | NUR ---
RN ROUNDS: PATIENT AWAKE AND ALERT x4 IN BED. PATIENT DENIES ANY PAIN. NO SIGNS OF DISTRESS OR SHORTNESS OF BREATH NOTED, PATIENT IN STABLE CONDITION. WILL CONTINUE TO MONITOR PATIENT FOR ANY CHANGES.
--- NOTE | 2019-02-20 14:45 | NUR ---
MD CALLED: SPOKE WITH DR. SPAULDING REGARDING PATIENT'S DIET. MD AWARE OF PATIENT'S STATUS. NEW ORDERS GIVEN.
[2019-02-20 16:00] VITALS: BP_SYST 112
--- NOTE | 2019-02-20 16:15 | NUR ---
RN ROUNDS: PATIENT ASLEEP IN BED. NO SIGNS OF DISTRESS OR SHORTNESS OF BREATH NOTED. PATIENT IN STABLE CONDITION. WILL CONTINUE TO MONITOR PATIENT FOR ANY CHANGES.
--- NOTE | 2019-02-20 18:45 | NUR ---
CLOSING NOTES: PATIENT IS AWAKE AND ALERT x4 LAYING IN BED. PATIENT DENIES ANY PAIN AT THE MOMENT. NO SIGNS OF DISTRESS OR SHORTNESS OF BREATH NOTED. PATIENT TOLERATING OXYGEN AT ROOM AIR. IV SITE IS PATENT WITH NO SIGNS OF INFILTRATION. PATIENT IN STABLE CONDITION. SAFETY, FALL AND ASPIRATION PRECAUTIONS REMAINED IN PLACE THROUGHOUT THE SHIFT. BED LOCKED IN LOWEST POSITION WITH CALL LIGHT IN REACH. WILL ENDORSE PATIENT CARE TO ONCOMING LOGGING OPERATIONS INSPECTOR NURSE.
[2019-02-20 20:00] VITALS: BP_SYST 97
--- NOTE | 2019-02-20 20:00 | NUR ---
Pt was received lying in bed fully awake, alert and oriented x4. No acute distress noted and no c/o pain or discomfort. IVF is infusing well at 80ml/hr in LAC without any signs of infiltration. Fall and safety precautions are in place. Call light is with pt and bed is in the lowest and locked positions.
[2019-02-20] MEDS: GABAPENTIN 400 MG CAPSULE PO SCH (20:32)
--- NOTE | 2019-02-20 22:00 | NUR ---
Pt remains awake and alert. IVF is infusing well in LAC. Fall and safety precautions are in place.
--- NOTE | 2019-02-21 | NUR ---
Pt is resting in bed without any distress noted. IVF is infusing well in [facility]. Fall and safety precautions are in place. Call light is with pt and bed is in the lowest and locked positions.
[2019-02-21 00:31] VITALS: BP_SYST 107
--- NOTE | 2019-02-21 02:00 | NUR ---
Pt is sleeping comfortably in bed. IVF is infusing well in [facility]. Fall and safety precautions are in place.
--- NOTE | 2019-02-21 04:00 | NUR ---
Pt is sleeping without any distress noted. IVF is infusing well in [facility]. Fall and safety precautions are in place.
--- NOTE | 2019-02-21 06:30 | NUR ---
Pt is awake and resting quietly in bed. All pt's needs were attended to. Fall and safety precautions are in place. Will endorse to day shift nurse.
--- NOTE | 2019-02-21 07:40 | NUR ---
OPENING NOTES: RECEIVED PATIENT FROM GAS METER CHECKER NURSE. PATIENT IS SLEEPING IN BED. NO SIGNS OF DISTRESS OR SHORTNESS OF BREATH NOTED. IV SITE IS PATENT WITH NO SIGNS OF INFILTRATION AND RUNNING FLUIDS ORDERED. PATIENT TOLERATING OXYGEN AT ROOM AIR. PATIENT IN STABLE CONDITION. SAFETY, FALL AND ASPIRATION PRECAUTIONS ARE IN PLACE. BED LOCKED IN LOWEST POSITION WITH CALL LIGHT IN REACH. WILL CONTINUE TO MONITOR PATIENT FOR ANY CHANGES.
[2019-02-21 08:23] VITALS: BP_SYST 117
[2019-02-21] MEDS: CILOSTAZOL 50 MG PO SCH (09:00)
--- NOTE | 2019-02-21 09:14 | NUR ---
MD ROUNDS: DR. SOLARES MAKING ROUNDS. AWARE OF PATIENT'S CONDITION. NEW ORDERS GIVEN.
[2019-02-21] MEDS: cefTRIAXone 1 GM IVPB PREMIX 50 ML IV SCH (09:15)
[2019-02-21] MEDS: VENLAFAXINE HCL 50 MG TABLET PO SCH (09:16)
[2019-02-21] MEDS: NACL 0.9% 1,000 ML IV SCH (09:16)
[2019-02-21] MEDS: DOCUSATE SODIUM 100 MG CAPSULE PO SCH (09:16)
--- NOTE | 2019-02-21 10:10 | NUR ---
RN ROUNDS: PATIENT IS AWAKE AND ALERT x4 LAYING DOWN IN BED. PATIENT STATES HER PAIN IS 6/10, PRN NORCO WAS GIVEN. NO SIGNS OF DISTRESS OR SHORTNESS OF BREATH NOTED. PATIENT IN STABLE CONDITION. WILL CONTINUE TO MONITOR PATIENT FOR ANY CHANGES.
[2019-02-21 12:00] VITALS: BP_SYST 114
--- NOTE | 2019-02-21 12:15 | NUR ---
RN ROUNDS: PATIENT IS AWAKE AND ALERT x4 IN BED. NO SIGNS OF DISTRESS OR SHORTNESS OF BREATH NOTED. PATIENT IN STABLE CONDITION. WILL CONTINUE TO MONITOR PATIENT FOR ANY CHANGES.
[2019-02-21 13:27] VITALS: BP_SYST 121
[2019-02-21 13:30] VITALS: BP_SYST 121
--- NOTE | 2019-02-21 14:35 | NUR ---
D/C Patient: Patient given medication reconciliation form and D/C instructions. Exit Care provided. Patient verbalized understanding. MD discussed with patient the results and treatment provided. Ambulatory with steady gait for discharge to home, Patient wheeled out in wheelchair. Patient in stable condition, ID band removed. IV catheter removed, intact and dressing applied, no active bleeding. Patient educated on pain management. All belongings sent with patient.
--- NOTE | 2019-02-27 15:47 | NUR ---
Discharge Follow Up Phone Call Phoned patient, , and left a voicemail message with reminder to make follow up appointments, offer of assistance, and Social Service contact information.
== END 2019-02-21 14:35 | disposition home or self-care (01) | DRG 444 ==
LOC: SED 12:26 → SMU 18:18
PROVIDERS: ADMIT Student in an Organized Health Care Education/Training Program; ATTEND Student in an Organized Health Care Education/Training Program
DX: K80.20 Calculus of gallbladder without cholecystitis without obstruction (principal); N17.0 Acute kidney failure with tubular necrosis; N13.30 Unspecified hydronephrosis; F32.9 Major depressive disorder, single episode, unspecified; I10 Essential (primary) hypertension; K82.8 Other specified diseases of gallbladder; I95.9 Hypotension, unspecified; M54.9 Dorsalgia, unspecified
CPT/HCPCS: 36415; 71045; 74181; 76700-TC; 80048; 80053; 80061; 81000-TC; 82150-TC; 83036; 83690-TC; 83735-TC; 84100-TC; 84443-TC; 84484; 85025; 85610-TC; 85730-TC; 87040-TC; 96361; 96374; 96375; 99285; J0696; J2270; J2405; J7030